=== PATIENT | female | born 1960 | race African-American/Black ===

== ENCOUNTER 2022-06-12 10:16 | Emergency (ER) | payer MEDICARE, MEDICAID ==
[~2022-06-12] VITALS: Ht 165.1 cm; Wt 95.0 kg
[2022-06-12] MEDS ORDERED: FAMOTIDINE 20MG TABLET PO ONE (15:00)
[2022-06-12] MEDS ORDERED: PREDNISONE 20MG TABLET PO ONE (15:00)
[2022-06-12] MEDS ORDERED: DIPHENHYDRAMINE 25MG CAPSULE PO ONE (15:00)
[2022-06-12] MEDS ORDERED: FAMO-135 MT (17:09)
[2022-06-12] MEDS ORDERED: P20 MT (17:09)
[2022-06-12] MEDS ORDERED: DIPH25TA62 MT (17:09)
[2022-06-12 17:21] VITALS: BP 128/89
== END 2022-06-12 17:23 | disposition home or self-care (01) ==
LOC: ER 10:16
DX: T78.40XA Allergy, unspecified, initial encounter (principal); X58.XXXA Exposure to other specified factors, initial encounter; R21 Rash and other nonspecific skin eruption
CPT/HCPCS: 99284; J7512; Q0163